=== PATIENT | female | born 1990 | race Caucasian/White ===

== ENCOUNTER 2017-03-20 06:58 | Inpatient (IN) | payer MEDICAID ==
[2017-03-20] MEDS ORDERED: Sodium Chloride 0.9% 10 ML Syringe FLUSH PRN (07:46)
[2017-03-20] MEDS ORDERED: Oxytocin/Lactated Ringers 10 UNIT/1,000 ML BAG IV SCH ×2 (08:00→19:00)
[2017-03-20] MEDS ORDERED: Lactated Ringers 1,000 ML IV SCH (08:00)
[2017-03-20] MEDS ORDERED: ePHEDrine 50 MG/ML SDV IVPUSH PRN (08:41)
[2017-03-20] MEDS ORDERED: diphenhydrAMINE 50 MG/ML SDV IVPUSH PRN (08:41)
[2017-03-20] MEDS ORDERED: fentaNYL 100 MCG/2 ML SDV EPIDUR PRN (08:41)
[2017-03-20] MEDS ORDERED: Bupivacaine/fentaNYL/NS 100 ML Bag EPIDUR SCH (08:45)
[2017-03-20] MEDS ORDERED: Nalbuphine 20 MG/1 ML Amp IVPUSH ONE (15:27)
--- NOTE | 2017-03-20 16:58 | PCM.LDHP ---
L&D History of Present Illness - General Date of Service: 03/20/17 Admit Problem/Dx: Patient Status Order with Admit Dx/Problem 03/20/17 08:26 Patient Status [ADT] Routine Admission Diagnosis/Problem Admission Diagnosis/Problem Source of Information: Patient History Limitations: Reports: No Limitations - History of Present Illness Introduction:: 27 year old here for induction of labor at 41w0d. 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 Hematologic History: Reports: Anemia - Infectious Disease History Infectious Disease History: Reports: Chicken Pox - Past Surgical History HEENT Surgical History: Reports: Oral Surgery Social & Family History - Tobacco Use Smoking Status *Q: Never Smoker - Caffeine Use Caffeine Use: Reports: Soda Other Caffeine Use: 3 cans per week - Recreational Drug Use Recreational Drug Use: No H&P Review of Systems - Review of Systems: Review Of Systems: See Below General: Reports: No Symptoms HEENT: Reports: No Symptoms Pulmonary: Reports: No Symptoms Cardiovascular: Reports: No Symptoms Gastrointestinal: Reports: No Symptoms Genitourinary: Reports: No Symptoms Musculoskeletal: Reports: No Symptoms Skin: Reports: No Symptoms Psychiatric: Reports: No Symptoms Neurological: Reports: No Symptoms Hematologic/Lymphatic: Reports: No Symptoms Immunologic: Reports: No Symptoms L&D Exam - Exam Exam: See Below - Vital Signs Vital Signs: Last Vital Signs Temp 36.1 C 03/20/17 07:46 Pulse 69 03/20/17 07:46 Resp 18 03/20/17 07:46 BP 125/83 03/20/17 07:46 Pulse Ox Weight: 94.483 kg - Degroot Score Degroot Score Cervix Position: Midposition Degroot Score Consistency: Medium Degroot Score Effacement: 51-70% Degroot Score Dilation: 3-4 cm Degroot Score Infant's Station: -1 ,0 Degroot Score Total: 8 - Exam General: Alert, Oriented HEENT: Conjunctiva Clear Neck: Supple Lungs: Clear to Auscultation Cardiovascular: Regular Rate Abdomen: Normal Bowel Sounds Genitourinary: Normal external exam Back Exam: Normal Inspection Extremities: Normal Inspection Skin: Warm, Dry, Intact Neurological: Cranial Nerves Intact, Reflexes Equal Bilateral Psychiatric: Alert, Normal Affect, Normal Mood - Patient Data Lab Results last 24 hrs: Laboratory Results - last 24 hr 03/20/17 03/20/17 Range/Units 08:00 08:07 WBC 8.67 (3.98-10.04) K/mm3 RBC 4.46 (3.98-5.22) M/mm3 Hgb 12.5 (11.2-15.7) gm/L Hct 37.7 (34.1-44.9) % MCV 84.5 (79.4-94.8) fl MCH 28.0 (25.6-32.2) pg MCHC 33.2 (32.2-35.5) g/dl RDW Std Deviation 44.0 (36.4-46.3) fL Plt Count 152 L (182-369) K/mm3 MPV 11.8 (9.4-12.3) fl Blood Type A NEGATIVE Gel Antibody Screen Positive Result Diagrams: 03/20/17 08:00 Problem List Initiated/Reviewed/Updated: Yes Orders Last 24hrs: Active Orders 24 hr Category Date Time Status Activity as Tolerated [RC] PFP Care 03/20/17 07:46 Active Communication Order [RC] ASDIRECTED Care 03/20/17 07:46 Active Heart Tones [RC] ASDIRECTED Care 03/20/17 07:47 Active Notify Provider [RC] ASDIRECTED Care 03/20/17 08:41 Active Notify Provider [RC] PFP Care 03/20/17 07:46 Active Notify Provider [RC] PRN Care 03/20/17 07:46 Active Peripheral IV Care [RC] . DIRECTED Care 03/20/17 07:47 Active Vital Signs [RC] PER UNIT ROUTINE Care 03/20/17 07:46 Active Regular Diet [DIET] Diet 03/20/17 Lunch Active ANTIBODY IDENTIFICATION [BBK] Urgent Lab 03/20/17 08:07 Results TYPE AND SCREEN [BBK] Urgent Lab 03/20/17 08:07 Results Bupivacaine/fentaNYL/NS [fentaNYL/Bupivacaine/NS 2 MCG- Med 03/20/17 08:45 Active 0.125% 100 ML] 100 ml EPIDUR ASDIRECTED Lactated Ringers [Ringers, Lactated] 1,000 ml Med 03/20/17 08:00 Active IV ASDIRECTED Oxytocin/Lactated Ringers [Pitocin in LR 10 Units/1,000 Med 03/20/17 08:00 Active ML] 10 unit in 1,000 ml IV TITRATE Sodium Chloride 0.9% [Saline Flush] Med 03/20/17 07:46 Active 10 ml FLUSH ASDIRECTED PRN diphenhydrAMINE [Benadryl] Med 03/20/17 08:41 Active 25 mg IVPUSH Q6H PRN ePHEDrine [ePHEDrine Sulfate] Med 03/20/17 08:41 Active 5 mg IVPUSH ASDIRECTED PRN fentaNYL [Sublimaze] Med 03/20/17 08:41 Active 100 mcg EPIDUR Q3H PRN Electronic Heart Tones Ext w TOCO [WOMSER] Oth 03/20/17 07:46 Ordered Routine Electronic Heart Tones Internal [WOMSER] Per Unit Ot 03/20/17 07:46 Ordered Routine Peripheral IV Insertion Adult [OM.PC] Routine Oth 03/20/17 07:46 Ordered Resuscitation Status Routine Resus Stat 03/20/17 07:46 Ordered Medication Orders Diphenhydramine HCl (Benadryl) 25 mg IVPUSH Q6H PRN PRN Reason: pruritis Ephedrine Sulfate (Ephedrine Sulfate) 5 mg IVPUSH ASDIRECTED PRN PRN Reason: Hypotension Fentanyl (Sublimaze) 100 mcg EPIDUR Q3H PRN PRN Reason: Pain Fentanyl/Bupivacaine HCl (Fentanyl/Bupivacaine/Ns 2 Mcg-0.125% 100 Ml) 100 ml EPIDUR ASDIRECTED MYRNA Lactated Ringer's (Ringers, Lactated) 1,000 mls @ 100 mls/hr IV ASDIRECTED MYRNA Last Admin: 03/20/17 09:22 Dose: 100 mls/hr Oxytocin/Lactated Ringer's (Pitocin In Lr 10 Units/1,000 Ml) 10 unit in 1,000 mls @ 12 mls/hr IV TITRATE MYRNA; 2 MUNITS/MIN PRN Reason: Protocol Last Titration: 03/20/17 16:51 Dose: 7 munits/min, 42 mls/hr Titration: 03/20/17 15:16 Dose: 6 munits/min, 36 mls/hr Titration: 03/20/17 13:20 Dose: 8 munits/min, 48 mls/hr Titration: 03/20/17 12:33 Dose: 7 munits/min, 42 mls/hr Titration: 03/20/17 11:28 Dose: 6 munits/min, 36 mls/hr Titration: 03/20/17 10:57 Dose: 5 munits/min, 30 mls/hr Titration: 03/20/17 09:59 Dose: 4 munits/min, 24 mls/hr Admin: 03/20/17 09:23 Dose: 2 munits/min, 12 mls/hr Sodium Chloride (Saline Flush) 10 ml FLUSH ASDIRECTED PRN PRN Reason: Keep Vein Open Assessment/Plan Comment:: Term induction.
[2017-03-20] MEDS ORDERED: Witch Hazel Medicated Pads 100/Jar TOP PRN (17:50)
[2017-03-20] MEDS ORDERED: Lanolin 100% Cream 7 GM Tube TOP PRN (17:50)
[2017-03-20] MEDS ORDERED: Docusate Sodium 100 MG Cap PO PRN (17:50)
[2017-03-20] MEDS ORDERED: Benzocaine/Menthol 20%-0.5% Spray 56 GM Canister TOP PRN (17:50)
[2017-03-20] MEDS: Ibuprofen 600 MG Tab PO PRN (18:18)
[2017-03-21] MEDS: Ibuprofen 600 MG Tab PO PRN (05:26)
--- NOTE | 2017-03-21 09:06 | PCM.PNPP ---
- General Info Date of Service: 03/21/17 Functional Status: Reports: pain controlled - Review of Systems General: Reports: No Symptoms HEENT: Reports: no symptoms Pulmonary: Reports: no symptoms Cardiovascular: Reports: No Symptoms Gastrointestinal: Reports: No symptoms Genitourinary: Reports: no symptoms Musculoskeletal: Reports: no symptoms Skin: Reports: no symptoms Neurological: Reports: No Symptoms Psychiatric: Reports: no symptoms - General Info Date of Service: 03/21/17 - Patient Data Vital Signs - most recent: Last Vital Signs Temp 36.6 C 03/21/17 05:24 Pulse 88 03/21/17 05:24 Resp 15 03/21/17 05:24 BP 133/84 03/21/17 05:24 Pulse Ox 97 03/21/17 05:24 Weight - most recent: 94.483 kg I&O - last 24 hours: Intake & Output 03/20/17 03/21/17 03/21/17 22:59 06:59 14:59 Intake Total 2740 Balance 2740 Lab Results - last 24 hrs: Laboratory Results - last 24 hr 03/20/17 Range/Units 08:07 Blood Type A NEGATIVE Gel Antibody Screen Positive Med Orders - Current: Current Medications Benzocaine/Menthol (Dermoplast Pain Relief [place]) 0 gm TOP ASDIRECTED PRN PRN Reason: Perineal Comfort Measure Last Admin: 03/20/17 18:18 Dose: 1 applic Docusate Sodium (Colace) 100 mg PO BID PRN PRN Reason: Constipation Emollient Ointment (Lansinoh Hpa) 0 gm TOP ASDIRECTED PRN PRN Reason: Sore Nipples Oxytocin/Lactated Ringer's (Pitocin In Lr 10 Units/1,000 Ml) 10 unit in 1,000 mls @ 500 mls/hr IV TITRATE MYRNA PRN Reason: Protocol Last Admin: 03/20/17 18:52 Dose: 500 ml/hr, 500 mls/hr Ibuprofen (Motrin) 600 mg PO Q6H PRN PRN Reason: Mild pain or fever Last Admin: 03/21/17 05:26 Dose: 600 mg Witch Holli (Tucks) 1 pad TOP ASDIRECTED PRN PRN Reason: Hemorrhoid pain Last Admin: 03/20/17 18:19 Dose: 1 applic Discontinued Medications Diphenhydramine HCl (Benadryl) 25 mg IVPUSH Q6H PRN PRN Reason: pruritis Ephedrine Sulfate (Ephedrine Sulfate) 5 mg IVPUSH ASDIRECTED PRN PRN Reason: Hypotension Fentanyl (Sublimaze) 100 mcg EPIDUR Q3H PRN PRN Reason: Pain Fentanyl/Bupivacaine HCl (Fentanyl/Bupivacaine/Ns 2 Mcg-0.125% 100 Ml) 100 ml EPIDUR ASDIRECTED MYRNA Lactated Ringer's (Ringers, Lactated) 1,000 mls @ 100 mls/hr IV ASDIRECTED MYRNA Last Admin: 03/20/17 09:22 Dose: 100 mls/hr Oxytocin/Lactated Ringer's (Pitocin In Lr 10 Units/1,000 Ml) 10 unit in 1,000 mls @ 12 mls/hr IV TITRATE MYRNA; 2 MUNITS/MIN PRN Reason: Protocol Last Titration: 03/20/17 16:51 Dose: 7 munits/min, 42 mls/hr Nalbuphine HCl (Nubain) 10 mg IVPUSH ONETIME ONE Stop: 03/20/17 15:28 Last Admin: 03/20/17 17:00 Dose: 5 mg Sodium Chloride (Saline Flush) 10 ml FLUSH ASDIRECTED PRN PRN Reason: Keep Vein Open - Interaction Infant Disposition, : [place] at Bedside Support Person: - Recovery Exam Fundal Tone: Firm Fundal Level: 2 Fingerbreadths Below Umbilicus Fundal Placement: Midline Lochia Amount: Small, Moderate Lochia Color: Rubra/Red Perineum Description: Intact, Minimal Bruising/Swelling Episiotomy/Laceration: Approximated Bladder Status: Voiding - Exam General: alert, oriented HEENT: Pupils equal Neck: supple Lungs: Clear to auscultation, Normal respiratory effort Cardiovascular: Regular Rate, Regular Rhythm Abdomen: bowel sounds present, soft, no tenderness, no distension Extremities: no edema Skin: warm, dry, intact Wound/Incisions: healing well Neurological: no new focal deficit Psy/Mental Status: alert, normal affect, normal mood - Problem List Review Problem List Initiated/Reviewed/Updated: Yes - My Orders Last 24 Hours: My Active Orders 03/20/17 08:07 ANTIBODY IDENTIFICATION [BBK] Urgent TYPE AND SCREEN [BBK] Urgent 03/20/17 17:50 Activity as Tolerated [RC] PER UNIT ROUTINE Vital Signs [RC] 12,20,04 Benzocaine/Menthol [Dermoplast Pain Relief [place]] See Dose Instructions TOP ASDIRECTED PRN Docusate Sodium [Colace] 100 mg PO BID PRN Ibuprofen [Motrin] 600 mg PO Q6H PRN Lanolin [Lansinoh HPA] See Dose Instructions TOP ASDIRECTED PRN Witch Holli [Tucks] 1 pad TOP ASDIRECTED PRN Assess Lochia [WOMSER] Per Unit Routine Assess Uterine Involution [WOMSER] Per Unit Routine Breast Pump [WOMSER] Per Unit Routine Heat Therapy [OM.PC] PRN Medication Administration Instruction [OM.PC] Routine Perineal Care [OM.PC] Per Unit Routine Sitz Bath [OM.PC] Per Unit Routine 03/20/17 19:00 Oxytocin/Lactated Ringers [Pitocin in LR 10 Units/1,000 ML] 10 unit in 1,000 ml IV TITRATE 03/20/17 22:05 SCREEN [BBK] Stat RH IMMUNE GLOBULIN [BBK] Stat 03/21/17 17:50 Heat Therapy [OM.PC] PRN 03/21/17 Breakfast Regular Diet [DIET] - Assessment Assessment:: day one s/p . No issues Baby rh positive. - Plan Plan:: Term induction.
[2017-03-22] MEDS: Ibuprofen 600 MG Tab PO PRN (05:35)
--- NOTE | 2017-03-22 06:22 | PCM.DCSUM1 ---
Discharge Summary - Hospital Course Brief History: Admitted for induction of labor. - Discharge Data Discharge Date: 03/22/17 Discharge Disposition: Home, Self-Care 01 Condition: Good - Patient Summary/Data Hospital Course: Admitted for induction of labor. Unremarkable labor and course. - Patient Instructions Diet: Usual Diet as Tolerated Activity: No Strenuous Activities Activity, Other: pelvic rest Driving: May Drive Today Notify Provider of: Fever, Increased Pain - Discharge Plan Home Medications: Home Meds Ferrous Sulfate [Slow Fe] 03/20/17 [History] Vits #90/Iron Fum/FA [ Formula] 03/20/17 [History] Referrals: Alyson Coon MD [Primary Care Provider] - (6 weeks) - Discharge Summary/Plan Comment DC Time >30 min.: No - Patient Data Vitals - Most Recent: Last Vital Signs Temp 36.6 C 03/22/17 05:38 Pulse 74 03/22/17 05:38 Resp 15 03/22/17 05:38 BP 119/76 03/22/17 05:38 Pulse Ox 100 03/22/17 05:38 Weight - Most Recent: 94.483 kg I&O - Last 24 hours: Intake & Output 03/21/17 03/21/17 03/22/17 14:59 22:59 06:59 Intake Total 481 120 Balance 481 120 Lab Results - Last 24 hrs: Laboratory Results - last 24 hr 03/20/17 03/20/17 Range/Units 08:07 22:05 Blood Type A NEGATIVE Cancelled Gel Antibody Screen Positive Cancelled Antibody Identification See Comments Screen 0 ros/5 flds - neg RhIG Candidate? Yes Rhogam Indicated Cancelled Med Orders - Current: Current Medications Benzocaine/Menthol (Dermoplast Pain Relief [place]) 0 gm TOP ASDIRECTED PRN PRN Reason: Perineal Comfort Measure Last Admin: 03/20/17 18:18 Dose: 1 applic Docusate Sodium (Colace) 100 mg PO BID PRN PRN Reason: Constipation Emollient Ointment (Lansinoh Hpa) 0 gm TOP ASDIRECTED PRN PRN Reason: Sore Nipples Oxytocin/Lactated Ringer's (Pitocin In Lr 10 Units/1,000 Ml) 10 unit in 1,000 mls @ 500 mls/hr IV TITRATE MYRNA PRN Reason: Protocol Last Admin: 03/20/17 18:52 Dose: 500 ml/hr, 500 mls/hr Ibuprofen (Motrin) 600 mg PO Q6H PRN PRN Reason: Mild pain or fever Last Admin: 03/22/17 05:35 Dose: 600 mg Witch Holli (Tucks) 1 pad TOP ASDIRECTED PRN PRN Reason: Hemorrhoid pain Last Admin: 03/20/17 18:19 Dose: 1 applic Discontinued Medications Diphenhydramine HCl (Benadryl) 25 mg IVPUSH Q6H PRN PRN Reason: pruritis Ephedrine Sulfate (Ephedrine Sulfate) 5 mg IVPUSH ASDIRECTED PRN PRN Reason: Hypotension Fentanyl (Sublimaze) 100 mcg EPIDUR Q3H PRN PRN Reason: Pain Fentanyl/Bupivacaine HCl (Fentanyl/Bupivacaine/Ns 2 Mcg-0.125% 100 Ml) 100 ml EPIDUR ASDIRECTED MYRNA Lactated Ringer's (Ringers, Lactated) 1,000 mls @ 100 mls/hr IV ASDIRECTED MYRNA Last Admin: 03/20/17 09:22 Dose: 100 mls/hr Oxytocin/Lactated Ringer's (Pitocin In Lr 10 Units/1,000 Ml) 10 unit in 1,000 mls @ 12 mls/hr IV TITRATE MYRNA; 2 MUNITS/MIN PRN Reason: Protocol Last Titration: 03/20/17 16:51 Dose: 7 munits/min, 42 mls/hr Nalbuphine HCl (Nubain) 10 mg IVPUSH ONETIME ONE Stop: 03/20/17 15:28 Last Admin: 03/20/17 17:00 Dose: 5 mg Sodium Chloride (Saline Flush) 10 ml FLUSH ASDIRECTED PRN PRN Reason: Keep Vein Open *Q Meaningful Use (DIS) - VTE *Q VTE Criteria *Q: - Stroke *Q Stroke Criteria *Q: - AMI *Q AMI Criteria *Q:
[2017-03-22 09:34] VITALS: BP 112/76
== END 2017-03-22 10:42 | disposition home or self-care (01) | DRG 775 ==
LOC: JD.OB 06:58 → OBSVTOIN 17:21
PROVIDERS: ADMIT Obstetrics & Gynecology; ATTEND Obstetrics & Gynecology
PROC: 10E0XZZ Delivery of Products of Conception, External Approach (ICD-10-PCS; principal; 2017-03-20)
PROC: 10907ZC Drainage of Amniotic Fluid, Therapeutic from Products of Conception, Via Natural or Artificial Opening (ICD-10-PCS; 2017-03-20)
PROC: 3E033VJ Introduction of Other Hormone into Peripheral Vein, Percutaneous Approach (ICD-10-PCS; 2017-03-20)
DX: O80 Encounter for full-term uncomplicated delivery (principal); Z3A.40 40 weeks gestation of pregnancy; Z37.0 Single live birth
CPT/HCPCS: 36415; 85027; 85461; 86850; 86870; 86900; 86901; A9270-GY; J2300; J2590; J2790; J7120

== ENCOUNTER 2019-09-21 21:57 | Inpatient (IN) | payer BC, MEDICAID ==
[2019-09-21] MEDS ORDERED: Nalbuphine 10 MG/1 ML Vial IVPUSH PRN (22:27)
[2019-09-21] MEDS ORDERED: Ondansetron 4 MG/2 ML SDV IVPUSH PRN (22:27)
[2019-09-21] MEDS ORDERED: Sodium Chloride 0.9% 10 ML Syringe FLUSH PRN (22:27)
[2019-09-21] MEDS ORDERED: Lactated Ringers 1,000 ML IV SCH (22:30)
[2019-09-21] MEDS ORDERED: Oxytocin/Lactated Ringers 10 UNIT/1,000 ML BAG IV SCH (22:30)
[2019-09-22] MEDS ORDERED: Oxytocin/Lactated Ringers 10 UNIT/1,000 ML BAG IV SCH (05:00)
--- NOTE | 2019-09-22 09:59 | PCM.LDHP ---
L&D History of Present Illness - General Date of Service: 09/22/19 Admit Problem/Dx: Patient Status Order with Admit Dx/Problem 09/21/19 22:27 Patient Status [ADT] Routine Admission Diagnosis/Problem Admission Diagnosis/Problem Source of Information: Patient History Limitations: Reports: No Limitations - History of Present Illness Introduction:: 29 year old at 39w5d here with SROM at 9pm. Minimal contractions initially. Increased now. 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 Hematologic History: Reports: Anemia - Infectious Disease History Infectious Disease History: Reports: Chicken Pox - Past Surgical History HEENT Surgical History: Reports: Oral Surgery Social & Family History - Tobacco Use Smoking Status *Q: Never Smoker Second Hand Smoke Exposure: No - Caffeine Use Caffeine Use: Reports: Soda Other Caffeine Use: 3 cans per week - Recreational Drug Use Recreational Drug Use: No H&P Review of Systems - Review of Systems: Review Of Systems: See Below General: Reports: No Symptoms HEENT: Reports: No Symptoms Pulmonary: Reports: No Symptoms Cardiovascular: Reports: No Symptoms Gastrointestinal: Reports: No Symptoms Genitourinary: Reports: No Symptoms Musculoskeletal: Reports: No Symptoms Skin: Reports: No Symptoms Psychiatric: Reports: No Symptoms Neurological: Reports: No Symptoms Hematologic/Lymphatic: Reports: No Symptoms Immunologic: Reports: No Symptoms L&D Exam - Exam Exam: See Below - Vital Signs Vital Signs: Last Vital Signs Temp 36.6 C 09/21/19 22:14 Pulse 87 09/21/19 22:14 Resp 16 09/21/19 22:14 BP 142/84 H 09/21/19 22:14 Pulse Ox Weight: 100.743 kg - OB Specific Contraction Intensity: Moderate Movement: Active Heart Tones: Present Heart Rate (FHR) Variability: Moderate (6-25 bmp) Presentation: Vertex - Degroot Score Degroot Score Cervix Position: Anterior Degroot Score Consistency: Medium Degroot Score Effacement: >80% Degroot Score Dilation: > 5 cm Degroot Score 's Station: -2 Degroot Score Total: 10 - Exam General: Alert, Oriented HEENT: PERRLA, Conjunctiva Clear, EACs Clear, EOMI, Hearing Intact, Mucosa Moist & [place], Nares Patent, Normal Nasal Septum, Posterior Pharynx Clear, TMs Clear Neck: Supple, Trachea Midline Lungs: Clear to Auscultation, Normal Respiratory Effort Cardiovascular: Regular Rate, Regular Rhythm GI/Abdominal Exam: Normal Bowel Sounds, Soft, Non-Tender, No Organomegaly, No Distention, No Abnormal Bruit, No Mass, Pelvis Stable Genitourinary: Normal external exam, Normal bimanual exam Back Exam: Normal Inspection, Full Range of Motion Extremities: Normal Inspection, Normal Range of Motion, Non-Tender, No Pedal Edema, Normal Capillary Refill Skin: Warm, Dry, Intact Neurological: Cranial Nerves Intact, Reflexes Equal Bilateral Psychiatric: Alert, Normal Affect, Normal Mood - Patient Data Lab Results Last 24 hrs: Laboratory Results - last 24 hr 09/21/19 09/21/19 Range/Units 22:40 22:40 WBC 8.79 (3.98-10.04) K/mm3 RBC 4.06 (3.98-5.22) M/mm3 Hgb 11.5 (11.2-15.7) gm/dl Hct 35.0 (34.1-44.9) % MCV 86.2 (79.4-94.8) fl MCH 28.3 (25.6-32.2) pg MCHC 32.9 (32.2-35.5) g/dl RDW Std Deviation 44.9 (36.4-46.3) fL Plt Count 113 L (182-369) K/mm3 MPV 12.5 H (9.4-12.3) fl Blood Type A NEGATIVE Gel Antibody Screen Negative Result Diagrams: 09/21/19 22:40 Problem List Initiated/Reviewed/Updated: Yes Orders Last 24hrs: Active Orders 24 hr Category Date Time Status Patient Status [ADT] Routine ADT 09/21/19 22:27 Active Activity as Tolerated [RC] PFP Care 09/21/19 22:27 Active Communication Order [RC] ASDIRECTED Care 09/21/19 22:27 Active Heart Tones [RC] ASDIRECTED Care 09/21/19 22:27 Active Non Stress Test [RC] PER UNIT ROUTINE Care 09/21/19 22:27 Active Notify Provider [RC] PFP Care 09/21/19 22:27 Active Notify Provider [RC] PRN Care 09/21/19 22:27 Active Peripheral IV Care [RC] . DIRECTED Care 09/21/19 22:27 Active Vital Signs [RC] PER UNIT ROUTINE Care 09/21/19 22:27 Active RAPID PLASMA REAGIN,RPR [CHEM] Routine Lab 09/21/19 22:40 Received Lactated Ringers [Ringers, Lactated] 1,000 ml Med 09/21/19 22:30 Active IV ASDIRECTED Nalbuphine [Nubain] Med 09/21/19 22:27 Active 10 mg IVPUSH Q2H PRN Ondansetron [Zofran] Med 09/21/19 22:27 Active 4 mg IVPUSH Q4H PRN Oxytocin/Lactated Ringers [Pitocin in LR 10 Units/1,000 Med 09/21/19 22:30 Active ML] 10 unit in 1,000 ml IV .CONTINUOUS Oxytocin/Lactated Ringers [Pitocin in LR 10 Units/1,000 Med 09/22/19 05:00 Active ML] 10 unit in 1,000 ml IV TITRATE Sodium Chloride 0.9% [Saline Flush] Med 09/21/19 22:27 Active 10 ml FLUSH ASDIRECTED PRN Electronic Heart Tones Ext w TOCO [WOMSER] Oth 09/21/19 22:27 Ordered Routine Electronic Heart Tones Internal [WOMSER] Per Unit Oth 09/21/19 22:27 Ordered Routine Peripheral IV Insertion Adult [OM.PC] Routine Oth 09/21/19 22:27 Ordered Resuscitation Status Routine Resus Stat 09/21/19 22:27 Ordered Medication Orders Lactated Ringer's (Ringers, Lactated) 1,000 mls @ 100 mls/hr IV ASDIRECTED MYRNA Last Admin: 09/22/19 05:27 Dose: 100 mls/hr Oxytocin/Lactated Ringer's (Pitocin In Lr 10 Units/1,000 Ml) 10 unit in 1,000 mls @ 500 mls/hr IV .CONTINUOUS MYRNA Oxytocin/Lactated Ringer's (Pitocin In Lr 10 Units/1,000 Ml) 10 unit in 1,000 mls @ 12 mls/hr IV TITRATE MYRNA; Protocol Last Titration: 09/22/19 09:05 Dose: 9 munits/min, 54 mls/hr Titration: 09/22/19 08:35 Dose: 7 munits/min, 42 mls/hr Titration: 09/22/19 08:05 Dose: 5 munits/min, 30 mls/hr Titration: 09/22/19 07:47 Dose: 3 munits/min, 18 mls/hr Titration: 09/22/19 06:45 Dose: 2 munits/min, 12 mls/hr Titration: 09/22/19 05:28 Dose: 1 munits/min, 6 mls/hr Admin: 09/22/19 05:27 Dose: 2 munits/min, 12 mls/hr Nalbuphine HCl (Nubain) 10 mg IVPUSH Q2H PRN PRN Reason: Pain Last Admin: 09/22/19 09:27 Dose: 10 mg Ondansetron HCl (Zofran) 4 mg IVPUSH Q4H PRN PRN Reason: Nausea/Vomiting Sodium Chloride (Saline Flush) 10 ml FLUSH ASDIRECTED PRN PRN Reason: Keep Vein Open
--- NOTE | 2019-09-22 10:32 | PCM.SN ---
- Free Text/Narrative Note: Stage I - Patient presented in active labor with SROM. Progressed to complete with overall reassuring FHT. Stage II - of viable female, weight 8#15oz, 8/9 APGARS at 1015. Head delivered in controlled manner over intact perineum. Body and shoulders atraumatically. To maternal abdomen. Cord clamped and cut. Stage III - of intact placenta. True knot.Placenta discarded. No laceration. EBL 150
[2019-09-22] MEDS ORDERED: Acetaminophen 325 MG Tab PO PRN (12:07)
[2019-09-22] MEDS ORDERED: Benzocaine/Menthol 20%-0.5% Spray 56 GM Canister TOP PRN (12:07)
[2019-09-22] MEDS ORDERED: Docusate Sodium 100 MG Cap PO PRN (12:07)
[2019-09-22] MEDS ORDERED: Witch Hazel Medicated Pads 40/Jar TOP PRN (12:07)
[2019-09-22] MEDS: Ibuprofen 600 MG Tab PO PRN (21:21)
[2019-09-23] MEDS: Ibuprofen 600 MG Tab PO PRN ×2 (12:27→23:44)
--- NOTE | 2019-09-24 06:38 | PCM.DCSUM1 ---
Discharge Summary - Hospital Course Diagnosis: Stroke: No - Discharge Data Discharge Date: 09/24/19 Discharge Disposition: Home, Self-Care 01 Condition: Good - Referral to Home Health Primary Care Physician: Juan David Richardson MD - Patient Instructions Diet: Usual Diet as Tolerated Activity: No Strenuous Activities Driving: May Drive Today Notify Provider of: Fever, Increased Pain, Swelling and Redness, Drainage, Nausea and/or Vomiting - Discharge Plan *PRESCRIPTION DRUG MONITORING PROGRAM REVIEWED*: No Home Medications: Home Meds Vit 90/Iron Fum/Folic [ Formula] 03/20/17 [History] Referrals: Alyson Coon MD [Physician] - (2-4 weeks) - Discharge Summary/Plan Comment DC Time >30 min.: No - General Info Date of Service: 09/24/19 Functional Status: Reports: Pain Controlled - Review of Systems General: Reports: No Symptoms HEENT: Reports: No Symptoms Pulmonary: Reports: No Symptoms Cardiovascular: Reports: No Symptoms Gastrointestinal: Reports: No Symptoms Genitourinary: Reports: No Symptoms Musculoskeletal: Reports: No Symptoms Skin: Reports: No Symptoms Neurological: Reports: No Symptoms Psychiatric: Reports: No Symptoms - Patient Data Vitals - Most Recent: Last Vital Signs Temp 36.7 C 09/23/19 16:33 Pulse 82 09/23/19 21:30 Resp 16 09/23/19 21:30 BP 121/73 09/23/19 21:30 Pulse Ox 98 09/23/19 21:30 Weight - Most Recent: 100.743 kg I&O - Last 24 hours: Intake & Output 09/23/19 09/23/19 09/24/19 14:59 22:59 06:59 Intake Total 362 720 Balance 362 720 Lab Results - Last 24 hrs: Laboratory Results - last 24 hr 09/22/19 Range/Units 15:37 Blood Type Cancelled Gel Antibody Screen Cancelled Screen 0 ros/5 flds - neg RhIG Candidate? Yes Rhogam Indicated Cancelled Med Orders - Current: Current Medications Acetaminophen (Tylenol) 650 mg PO Q4H PRN PRN Reason: mild pain or fever Benzocaine/Menthol (Dermoplast Pain Relief [place]) 0 gm TOP ASDIRECTED PRN PRN Reason: Perineal Comfort Measure Docusate Sodium (Colace) 100 mg PO BID PRN PRN Reason: Constipation Oxytocin/Lactated Ringer's (Pitocin In Lr 10 Units/1,000 Ml) 10 unit in 1,000 mls @ 12 mls/hr IV TITRATE MYRNA; Protocol Last Titration: 09/22/19 11:07 Dose: 500 mls/hr Ibuprofen (Motrin) 600 mg PO Q4H PRN PRN Reason: Mild pain or fever Last Admin: 09/23/19 23:44 Dose: 600 mg Sodium Chloride (Saline Flush) 10 ml FLUSH ASDIRECTED PRN PRN Reason: Keep Vein Open Witch Holli (Tucks) 1 pad TOP ASDIRECTED PRN PRN Reason: Perineal Comfort Measure Discontinued Medications Lactated Ringer's (Ringers, Lactated) 1,000 mls @ 100 mls/hr IV ASDIRECTED MYRNA Last Admin: 09/22/19 05:27 Dose: 100 mls/hr Oxytocin/Lactated Ringer's (Pitocin In Lr 10 Units/1,000 Ml) 10 unit in 1,000 mls @ 500 mls/hr IV .CONTINUOUS MYRNA Nalbuphine HCl (Nubain) 10 mg IVPUSH Q2H PRN PRN Reason: Pain Last Admin: 09/22/19 09:27 Dose: 10 mg Ondansetron HCl (Zofran) 4 mg IVPUSH Q4H PRN PRN Reason: Nausea/Vomiting - Exam General: Reports: Alert, Oriented HEENT: Reports: Pupils Equal, Pupils Reactive, EOMI, Mucous Membr. Moist/[place] Neck: Reports: Supple Lungs: Reports: Clear to Auscultation, Normal Respiratory Effort Cardiovascular: Reports: Regular Rate, Regular Rhythm GI/Abdominal Exam: Normal Bowel Sounds, Soft, Non-Tender, No Organomegaly, No Distention, No Abnormal Bruit, No Mass, Pelvis Stable Rectal (Female) Exam: Normal Exam, Normal Rectal Tone Back Exam: Reports: Normal Inspection, Full Range of Motion Extremities: Normal Inspection, Normal Range of Motion, Non-Tender, No Pedal Edema, Normal Capillary Refill Skin: Reports: Warm, Dry, Intact Wound/Incisions: Reports: Healing Well Neurological: Reports: No New Focal Deficit Psy/Mental Status: Reports: Alert, Normal Affect, Normal Mood
[2019-09-24 08:08] VITALS: BP 131/85; PULSE 81
[2019-09-24] MEDS: Ibuprofen 600 MG Tab PO PRN (10:38)
== END 2019-09-24 10:39 | disposition home or self-care (01) | DRG 560 ==
LOC: JD.OBCHECK 21:57 → JD.OB 22:03 → JD.OBCHECK 22:27 → JD.OB 23:05 → OBSVTOIN 09-22 10:15 → JD.OB 09-22 10:16
PROVIDERS: ADMIT Obstetrics & Gynecology; ATTEND Obstetrics & Gynecology
PROC: 10E0XZZ Delivery of Products of Conception, External Approach (ICD-10-PCS; principal; 2019-09-22)
DX: O80 Encounter for full-term uncomplicated delivery (principal); Z37.0 Single live birth; Z3A.39 39 weeks gestation of pregnancy
CPT/HCPCS: 36415; 59025; 59409; 85027; 85461; 86592; 86850; 86900; 86901; A9270-GY; J2300; J2590; J2790; J7120